=== PATIENT | female | born 1970 | race Caucasian/White ===

== ENCOUNTER 2019-12-14 14:07 | Emergency (ER) | payer OTHER ==
[~2019-12-14] VITALS: Ht 170.2 cm; Wt 108.9 kg
[2019-12-14] MEDS ORDERED: NAPROSYN500 MG PO (15:57)
[2019-12-14] MEDS ORDERED: LIDOCAINE1 EACH TRANSDERM (15:57)
[2019-12-14 16:25] VITALS: BP 130/82
== END 2019-12-14 16:29 | disposition home or self-care (01) ==
LOC: ER 14:07
DX: R07.9 Chest pain, unspecified (principal)